=== PATIENT | male | born 2000 | race Two or more races ===

== ENCOUNTER 2018-05-09 14:55 | Emergency (ER) | payer OTHER ==
--- NOTE | 2018-05-09 16:01 | EDPHY ---
H & P Stated Complaint: Dry cough x1 month;seen here last month for same Time Seen by Provider: 05/09/18 16:00 HPI/ROS: HPI CHIEF COMPLAINT: Cough x1 month. HISTORY OF PRESENT ILLNESS: 18-year-old male, otherwise healthy, presents emergency room with cough x1 month. The patient reports that he has had an ongoing dry cough nonproductive since fall. He states 3 weeks of non stopping coughing. Nonproductive. No fever. Denies chest pain or shortness of breath, denies pleuritic pain, denies cough being productive. Denies feeling ill. States he was seen here for this and diagnosed with a viral illness. Past Medical History: Denies significant medical history Past Surgical History: Denies significant surgical history Social History: Denies drugs alcohol tobacco. Family History: Noncontributory ROS REVIEW OF SYSTEMS: 10 Systems were reviewed and negative with the exception of the elements mentioned in the history of present illness. Exam Constitutional appears well nontoxic no acute distress triage nursing summary reviewed, vital signs reviewed, awake/alert. Vital signs stable. Eyes normal conjunctivae and sclera, EOMI, PERRLA. HENT normal inspection, atraumatic, moist mucus membranes, no epistaxis, neck supple/ no meningismus, no raccoon eyes. Respiratory clear to auscultation bilaterally, normal breath sounds, no respiratory distress, no wheezing. Cardiovascular rate normal, regular rhythm, no murmur, no edema, distal pulses normal. Gastrointestinal soft, non-tender, no rebound, no guarding, normal bowel sounds, no distension, no pulsatile mass. Genitourinary no CVA tenderness. Musculoskeletal no midline vertebral tenderness, full range of motion, no calf swelling, no tenderness of extremities, no meningismus, good pulses, neurovascularly intact. Skin pink, warm, & dry, no rash, skin atraumatic. Neurologic awake, alert and oriented x 3, AAOx3, moves all 4 extremities equally, motor intact, sensory intact, CN II-XII intact, normal cerebellar, normal vision, normal speech. Psychiatric normal mood/affect. Heme/Lymph/Immune no lymphadenopathy. Differential Diagnosis: Includes but is not limited to in a particular order viral syndrome, URI, allergies, bronchitis, pneumonia, TB, pertussis, lung cancer. Medical Decision Making: Plan for this patient two view chest x-ray. Re-evaluation: ED x-ray chest two view negative for acute cardiopulmonary disease specifically no evidence of pneumonia. No lung mass visualized. Image interpreted myself. Given the patient has been coughing for month I will place him on azithromycin case this is pertussis however there is unlikely. As well as albuterol inhaler. Recommend following up with primary care doctor Return precautions discussed return if worsening shortness of breath, fever, worsening cough or not doing well. He agrees with this plan. Source: Patient - Personal History Current Tetanus Diphtheria and Acellular Pertussis (TDAP): Unsure - Medical/Surgical History Hx Asthma: No Hx Chronic Respiratory Disease: No Hx Diabetes: No Hx Cardiac Disease: No Hx Renal Disease: No Hx Cirrhosis: No Hx Alcoholism: No Hx HIV/AIDS: No Hx Splenectomy or Spleen Trauma: No Other PMH: none - Social History Smoking Status: Never smoked Constitutional: Initial Vital Signs Temperature (C) 36.7 C 05/09/18 14:56 Heart Rate 71 05/09/18 14:56 Respiratory Rate 16 05/09/18 14:56 Blood Pressure 119/82 H 05/09/18 14:56 O2 Sat (%) 94 05/09/18 14:56 O2 Delivery Mode Room Air Allergies/Adverse Reactions: No Known Allergies Allergy (Verified 05/09/18 14:56) Home Medications: Medication Instructions Recorded Albuterol [Proventil Inhaler HFA 1 - 2 puffs IH Q4H #1 mdi 05/09/18 (*)] Azithromycin [Zithromax] 250 mg PO DAILY #6 tab 05/09/18 Departure - Departure Disposition: Home, Routine, Self-Care Clinical Impression: Cough Condition: Good Instructions: Acute Cough (ED) Additional Instructions: 1. Follow up with your primary care doctor 2. Return if worse. Referrals: NONE *PRIMARY CARE P,. [Primary Care Provider] - As per Instructions [facility] [Clinic] - As per Instructions Prescriptions: Albuterol [Proventil Inhaler HFA (*)] 1 - 2 puffs IH Q4H #1 mdi Azithromycin [Zithromax] 250 mg PO DAILY #6 tab
[2018-05-09 16:55] VITALS: BP 121/75
== END 2018-05-09 16:54 | disposition home or self-care (01) ==
DX: R05 Cough (principal)